=== PATIENT | female | born 1980 | race Caucasian/White ===

== ENCOUNTER → 2021-03-25 14:55 | Outpatient (CLI) | payer MEDICAID, SELFPAY ==
[2021-03-25 17:46] LABS: Hematocrit 41.1 % (37-47); Hemoglobin 13.3 g/dL (12.0-15.0); Mean Corp Hgb Conc 32.4 g/dL (32-36); Mean Corpuscular Hgb 30.4 pg (27.0-32.0); Mean Corpuscular Volume 94.1 fL (81-99); Mean Platelet Vol. 10.6 fl (6.2-12.0); Platelet Count 352 K/mm3 (150-450); RBC Distribution Width CV 12.8 % (11.6-14.6); RBC Distribution Width SD 44.8 fl (35.1-43.9); Red Blood Count 4.37 M/mm3 (4.2-5.4)
[2021-03-25 18:28] LABS: Anion Gap 6 (5-15); BUN 8 mg/dL (7-18); BUN/Creat Ratio 12.2 RATIO (10-20); Chloride 104 mmol/L (98-107); Creatinine, Serum 0.66 mg/dL (0.55-1.02); EST Glomerular Filtration Rate 105 mL/min (>60); Est Glom Filt Rate - Afr Amer 127 mL/min (>60); Glucose 87 mg/dL (74-106); Sodium Level 139 mmol/L (136-145)
== END ==
PROVIDERS: PCP Nurse Practitioner Family; Referring Provider Urology; Visit Provider Urology
DX: R10.30 Lower abdominal pain, unspecified (principal); M54.9 Dorsalgia, unspecified; N39.41 Urge incontinence; R35.0 Frequency of micturition
CPT/HCPCS: 36415; 80048; 85027

== ENCOUNTER → 2021-04-04 14:37 | Outpatient (CLI) | payer MEDICAID, SELFPAY ==
--- NOTE | 2021-04-04 14:40 | CT_ITS ---
STUDY: CT ABDOMEN AND PELVIS WITHOUT CONTRAST REASON FOR EXAM: Female, 40 years old. ABD/BACK PAIN/URGENCY/FREQUENCY RADIATION DOSAGE (If Supplied By Facility): CTDIvol = ( 5.49 ) mGy, DLP = ( 240.33 ) mGycm TECHNIQUE: Transaxial images were obtained from the dome of the diaphragm to the symphysis pubis without oral contrast, and without intravenous contrast. Sagittal and coronal images were reconstructed. Individualized dose optimization techniques were used for this CT. COMPARISON: None. FINDINGS: The visualized lung bases are unremarkable. The visualized portions of the heart are within normal limits. Normal liver. Normal gallbladder and extrahepatic biliary system. Normal spleen. Normal pancreas. Normal bilateral adrenal glands. Normal right kidney. Normal left kidney. Normal visualized stomach. Normal small intestine. Normal colon. The appendix is visualized and appears normal. There is minimal atherosclerotic calcification of the abdominal aorta, without a demonstrated aneurysm. Normal inferior vena cava. Normal retroperitoneum. Normal urinary bladder. Normal abdominal wall. Moderate degree of disc space narrowing and disc degeneration at the L5-S1 level. Limbus vertebrae of the superior endplate of the L3 vertebrae. CT/Abdomen/Pelvis without Cont IMPRESSION: No acute abnormality is seen. Electronically Signed: Coleman Toribio MD at 15:23 EDT , Service support ,
== END ==
PROVIDERS: PCP Nurse Practitioner Family; Referring Provider Urology; Visit Provider Urology
DX: R10.30 Lower abdominal pain, unspecified (principal); M54.9 Dorsalgia, unspecified; R39.15 Urgency of urination; R35.0 Frequency of micturition
CPT/HCPCS: 74176

== ENCOUNTER 2021-06-11 17:54 | Emergency (ER) | payer MEDICAID, SELFPAY ==
[2021-06-11 17:55] VITALS: BP 153/86; PULSE 87; RESP 16; TEMP 36.6; O2SAT 100; BMI 20.9
[2021-06-11 18:35] LABS: Bacteria 0 SEEN /hpf (None Seen); Mucous, Urine 0 SEEN /hpf (<or=2+); Red Blood Cells-Urine 0 SEEN /hpf (0-5); White Blood Cells 0 SEEN /hpf (0-5)
[2021-06-11] MEDS: Morphine 4 MG/ML Syringe IV (18:35)
[2021-06-11] MEDS: Ondansetron 4 MG/2 ML Vial IV (18:35)
[2021-06-11 18:36] LABS: Absolute Lymphocyte Count 1.56 X10^3/uL (0.83-4.51); Absolute Neutrophil Count 6.2 X10^3/uL (2.0-7.7); Basophil# 0.07 X10^3/uL; Basophil% 0.8 % (0-1); Eosinophil# 0.19 X10^3/uL; Eosinophils% 2.2 % (0-5); Hematocrit 39.4 % (37-47); Hemoglobin 13.4 g/dL (12.0-15.0); Lymphocyte # 1.56 X10^3/ul (0.83-4.51); Lymphocyte % 17.9 % (19-41); Mean Corpuscular Hgb 30.9 pg (27.0-32.0); Mean Platelet Vol. 9.8 fl (6.2-12.0); Monocyte# 0.68 X10^3/uL; Monocyte% 7.8 % (0-10); NRBC Flagged by Analyzer 0 % (0-5); Platelet Count 346 K/mm3 (150-450); RBC Distribution Width CV 12.3 % (11.6-14.6); RBC Distribution Width SD 41.2 fl (35.1-43.9); Red Blood Count 4.33 M/mm3 (4.2-5.4); White Blood Count 8.7 K/mm3 (4.4-11.0)
[2021-06-11] MEDS: Ketorolac 15 MG/ML Vial IV (18:36)
[2021-06-11 18:38] LABS: Color, Urine Straw (Yellow); Glucose, Dipstick Normal (Normal); Ketone-Dipstick Negative (Negative); Leukocyte Esterase-Dipstick Negative /ul (Negative); Nitrite-Dipstick Negative (Negative); Occult Blood-Urine 10 /ul (Negative); Protein-Dipstick Negative (Negative); Urine Bilirubin Dipstick Negative (Negative); Urine Clarity Clear (Clear); Urine Urobilinogen Normal (Normal)
--- NOTE | 2021-06-11 18:42 | CT_ITS ---
STUDY: CT ABDOMEN AND PELVIS WITHOUT CONTRAST REASON FOR EXAM: Female, 40 years old. Kidney stone flank pain RADIATION DOSAGE (If Supplied By Facility): CTDIvol = ( 6.17 ) mGy, DLP = ( 268.16 ) mGycm TECHNIQUE: Transaxial images were obtained from the dome of the diaphragm to the symphysis pubis without oral contrast, and without intravenous contrast. Sagittal and coronal images were reconstructed. Individualized dose optimization techniques were used for this CT. COMPARISON: None. FINDINGS: The visualized lung bases are unremarkable. The visualized portions of the heart are within normal limits. Normal liver. Normal gallbladder and extrahepatic biliary system. Normal spleen. Normal pancreas. Normal bilateral adrenal glands. Normal right kidney. Normal left kidney. There is no intestinal obstruction. Normal abdominal aorta. Normal inferior vena cava. Normal retroperitoneum. Normal urinary bladder. Normal abdominal wall. Normal osseous structures. There are mild degenerative changes with a limbus L3 vertebra. CT/Abdomen/Pelvis without Cont IMPRESSION: Normal unenhanced CT of the abdomen and pelvis. No kidney stones. Electronically Signed: Dennis Osman MD at 19:16 EST Tel , Service support ,
[2021-06-11 18:49] LABS: Anion Gap 8 (5-15); BUN 11 mg/dL (7-18); BUN/Creat Ratio 15.6 RATIO (10-20); Calcium,Total 9.4 mg/dL (8.5-10.1); Chloride 103 mmol/L (98-107); EST Glomerular Filtration Rate 97 mL/min (>60); Est Glom Filt Rate - Afr Amer 117 mL/min (>60); Estimated Creatinine Clearance 86.61 ml/min; Glucose 98 mg/dL (74-106); Potassium 3.9 mmol/L (3.5-5.1); Sodium Level 139 mmol/L (136-145)
[2021-06-11 18:58] LABS: Squamous Epithelial Cells - UA 0-5 SEEN /hpf (5-10)
--- NOTE | 2021-06-11 19:30 | EDS_ITS ---
HPI HPI - Female History of Present Illness Chief Complaint: Flank Pain Narrative Narrative: 40-year-old female presenting with right-sided flank pain. She states has had some somewhat chronic pelvic pain which she has been seen for twice. She states she saw her geriatric social work professor as well as her urologist and had ultrasounds of her bladder and her pelvis and these were negative. She denies any vaginal complaints. She is not had any fever. She does have some nausea. He does not have constipation or diarrhea. PFSH [facility] Medical History (Updated 06/11/21 @ 18:39 by Ofe Nagy RN) Anxiety Depression Allergy/AdvReac Type Severity Reaction Status Date / Time No Known Allergies Allergy Verified 06/11/21 17:56 Surgical History History of hysterectomy Social History Smoking Status: Current every day smoker tobacco type: e-cigarettes ROS ROS ED Constitutional Constitutional ED: Denies chills or fever(s) Eyes Eyes: Denies blurry vision or change in vision ENT ENT ED: Denies ear pain or rhinorrhea Cardiovascular Cardiovascular: Denies chest pain Respiratory/Chest Respiratory/Chest: Denies cough or dyspnea Gastrointestinal Gastrointestinal: Reports abdominal pain and nausea; Denies constipation, diarrhea or vomiting Genitourinary Genitourinary ED: Denies dysuria or hematuria Musculoskeletal Musculoskeletal: Reports other Details: Right flank pain Integumentary Denies rash Neurologic Neurologic: Denies headache(s) or paresthesias Psychiatric Psychiatric: Denies anxiety or depression EXAM Physical Exam Const Vital Signs: 06/11/21 17:55 Temperature 97.8 F Temperature Source Temporal Pulse Rate 87 Respiratory Rate 16 Blood Pressure 153/86 H Blood Pressure Mean 108 Pulse Ox 100 Oxygen Delivery Method Room Air Positive well nourished General Appearance ED: NAD; Negative for pallor HEENT Reports moist mucous membranes Negative for trauma Eyes PERRL and EOMs intact bilaterally Resp normal respiratory effort and clear to auscultation bilaterally Cardio regular rate and regular rhythm GI soft to palpation and non-distended Back/Spine Back/Spine Narrative: CVA tenderness noted on the right however patient also has tenderness to the very lightest touch of her skin in this area. No rashes appreciated. No bruising. General Back: CVA tenderness right Psych mental status grossly normal Skin General Skin Exam: Negative for jaundice or pallor MDM MDM MDM Narrative Medical decision making narrative: I did obtain lab work which is normal. Urinalysis is negative for infection but does show occult blood. She states this has been a chronic finding. She is already had a pelvic ultrasound in which she states is a bladder ultrasound. CT of the abdomen pelvis without contrast does not identify any kidney stone or other acute abnormality. Patient was treated morphine, Zofran, Toradol with suspicion that there might have been a kidney stone. Given the negative work-up I feel she is stable to be discharged home. She has already seen gynecology and urology. She states that she will follow up with her GI specialist as she is due for colonoscopy. Patient given return precautions. Patient stable discharge. Impression: 1. Right flank pain unknown cause 2. Hematuria Lab Data Labs: Laboratory Results - last 24 hr 06/11/21 06/11/21 06/11/21 18:30 18:30 18:30 WBC 8.7 RBC 4.33 Hgb 13.4 Hct 39.4 MCV 91.0 MCH 30.9 MCHC 34.0 RDW Std Deviation 41.2 RDW Coeff of Rere 12.3 Plt Count 346 MPV 9.8 Immature Gran % (Auto) 0.300 Neut % (Auto) 71.0 H Lymph % (Auto) 17.9 L [place] % (Auto) 7.8 Eos % (Auto) 2.2 Baso % (Auto) 0.8 Absolute Neuts (auto) 6.2 Absolute Lymphs (auto) 1.56 Nucleated RBC % 0 Sodium 139 Potassium 3.9 Chloride 103 Carbon Dioxide 28.0 Anion Gap 8 BUN 11 Creatinine 0.70 Estim Creat Clear Calc 86.61 Est GFR (MDRD) Af Amer 117 Est GFR (MDRD) Non-Af 97 BUN/Creatinine Ratio 15.6 Glucose 98 Calcium 9.4 Urine Color Straw Urine Clarity Clear Urine pH 7.0 Ur Specific [employer] 1.010 Urine Protein Negative Urine Glucose (UA) Normal Urine Ketones Negative Urine Occult Blood 10 H Urine Nitrite Negative Urine Bilirubin Negative Urine Urobilinogen Normal Ur Leukocyte Esterase Negative Urine RBC 0 SEEN Urine WBC 0 SEEN Ur Squamous Epith Cells 0-5 SEEN Urine Bacteria 0 SEEN Urine Mucus 0 SEEN Radiography Diagnostic Testing: Clinical Impression(s) from Imaging Studies Abdomen/Pelvis CT 06/11/21 18:42 IMPRESSION: Normal unenhanced CT of the abdomen and pelvis. No kidney stones. Electronically Signed: Dennis Osman MD at 19:16 EST Tel , Service support , Discharge Plan Triage Chief Complaint: Flank Pain ED Provider: Barry Flores Dx/Rx/DC Orders Instructions: ED Flank Pain, Uncertain Cause Primary Care Provider: Christy Olsen NP Referrals: Christy Olsen NP, ENVIRONMENTAL HEALTH NURSE-C [Primary Care Provider] - Disposition Disposition: Home, Self Care
[2021-06-11 19:55] VITALS: BP 128/89; PULSE 74; RESP 16; O2SAT 98
== END 2021-06-11 19:57 | disposition home or self-care (01) ==
PROVIDERS: Emergency Provider Student in an Organized Health Care Education/Training Program; PCP Nurse Practitioner Family
DX: R10.9 Unspecified abdominal pain (principal); R31.9 Hematuria, unspecified; R11.0 Nausea; R10.2 Pelvic and perineal pain; G89.29 Other chronic pain; F17.290 Nicotine dependence, other tobacco product, uncomplicated; Z90.710 Acquired absence of both cervix and uterus
CPT/HCPCS: 74176; 80048; 81001; 85025; 96374; 96375; 99283; A4216; J2405